=== PATIENT | female | born 1980 | race Caucasian/White ===

== ENCOUNTER → 2018-06-11 | Outpatient (CLI) | payer BC ==
[~2018-06-11] MED LIST: ALBU8.5H IH; FAMO20TA28 PO; IBUP-2704 PO; IOPAMIDOL 76% 75 ML INFUS BTL 75 ML ONE; LEV125 PO; LEVO100T95 PO; LEVO112T44 PO; LOR5/325 PO; PRED20TA6 PO
--- NOTE | 2018-06-11 14:45 | RADIOLOGY IMAGING REPORT ---
FACILITY: [facility] - [place] PATIENT NAME: Ana Elder : 1980 MR: [id number] V: [id number] EXAM DATE: ORDERING PHYSICIAN: ANA DO TECHNOLOGIST: Location: [facility] Patient: Ana Elder : 1980 Visit/Account:[id number] Date of Sevice: 06/11/2018 ABDOMEN/PELVIS W/WO CONTRAST HISTORY: Generalized abdomen tenderness TECHNIQUE: Axial images acquired through the abdomen/pelvis both with and without IV contrast.. Tejinder nal and sagittal reformatting also performed. Dose Lowering Technique One of the following dose optimization techniques was utilized in the performance of this exam: Autom ated exposure control; adjustment of the mA and/or kV according to the patient's size; or use of an i terative reconstruction technique. Specific details can be referenced in the facility's radiology C T exam operational policy. CONTRAST: 75 mL [id number]-[id number] COMPARISON: None. FINDINGS: Visualized lung bases: Negative. Hepatobiliary: The right lobe of the liver appears mildly prominent 21.5 cm. Spleen: Negative. Adrenals: Negative. Pancreas: Negative. Kidneys ureters and bladder: Kidneys appear grossly unremarkable. The urinary bladder is moderately distended Genitalia: There Is 1.5 cm right ovarian cyst with a trace amount of free pelvic fluid GI: There is a moderate amount of fecal material seen throughout the colon which can be seen with co nstipation. The appendix is not definitively seen although no inflammatory changes identified in the right lower quadrant Vessels/spaces/nodes: Negative. Bones/soft tissues: There is a small umbilical hernia containing fat Additional findings: None pertinent. IMPRESSION: Right lobe of the liver appears mildly prominent likely a Allie's lobe 1.5 cm right ovarian cyst with a trace amount of free pelvic fluid There is a moderate amount of fecal material seen throughout colon which can be seen with constipatio n The appendix is not definitively seen although no inflammatory change identified in the right lower q uadrant Small. Umbilical hernia containing fat Report Dictated By: Melissa Awad MD at 06/11/2018 2:32 PM Report E-Signed By: Melissa Awad MD at 06/11/2018 2:40 PM WSN:[id number]
== END ==
LOC: CT 09:42
PROVIDERS: ATTEND Physician Assistant Medical
DX: N83.201 Unspecified ovarian cyst, right side (principal); K59.00 Constipation, unspecified; K42.9 Umbilical hernia without obstruction or gangrene
CPT/HCPCS: 74178; Q9967

== ENCOUNTER → 2018-06-29 | Outpatient (CLI) | payer BC ==
[~2018-06-29] MED LIST changes: -IOPAMIDOL 76% 75 ML INFUS BTL 75 ML ONE
== END ==
LOC: RAD 07:02
PROVIDERS: ATTEND Internal Medicine Cardiovascular Disease
DX: R07.2 Precordial pain (principal)
CPT/HCPCS: 36415; 86140; 93017; 93350